=== PATIENT | male | born 1990 | race Caucasian/White ===

== ENCOUNTER 2023-09-04 19:22 | Emergency (ER) | payer SELFPAY ==
[~2023-09-04] VITALS: Ht 172.7 cm; Wt 99.8 kg
[2023-09-04 19:31] VITALS: BP 124/69; PULSE 69; RESP 18; TEMP 97.2; O2SAT 100
== END 2023-09-04 21:33 | disposition left against medical advice (07) ==
LOC: MED 19:22
DX: S09.90XA Unspecified injury of head, initial encounter (principal); R11.2 Nausea with vomiting, unspecified; M54.50 Low back pain, unspecified; Z53.21 Procedure and treatment not carried out due to patient leaving prior to being seen by health care provider; W18.2XXA Fall in (into) shower or empty bathtub, initial encounter; Y92.89 Other specified places as the place of occurrence of the external cause; Y93.89 Activity, other specified; Y99.8 Other external cause status
CPT/HCPCS: 99281